=== PATIENT | male | born 1960 | race Caucasian/White ===

== ENCOUNTER 2022-07-24 15:42 | Inpatient (IN) | payer MEDICARE, OTHER ==
[~2022-07-24] VITALS: Ht 172.7 cm; Wt 112.0 kg
[2022-07-24] MEDS ORDERED: INSU100V28 SQ (16:34)
[2022-07-24] MEDS ORDERED: BISA10SU61 RC (16:34)
[2022-07-24] MEDS ORDERED: MAGN400O6 PO (16:34)
[2022-07-24] MEDS ORDERED: PANT40TA49 PO (16:34)
[2022-07-24] MEDS ORDERED: AMLO10TA59 PO (16:34)
[2022-07-24] MEDS ORDERED: FERR325T28 PO (16:34)
[2022-07-24] MEDS ORDERED: MULT-213 PO (16:34)
[2022-07-24] MEDS ORDERED: AMIN236L PO (16:34)
[2022-07-24] MEDS ORDERED: ASCO500T10 PO (16:34)
[2022-07-24] MEDS ORDERED: METO25TA6 PO (16:34)
[2022-07-24] MEDS ORDERED: LACT10SO3 PO (16:34)
[2022-07-24] MEDS ORDERED: ACET-2154 PO (16:34)
[2022-07-24] MEDS ORDERED: HYDR-3972 PO ×2 (16:34)
[2022-07-24] MEDS ORDERED: ACET-2605 PO (16:34)
[2022-07-24] MEDS ORDERED: NA P133E RC (16:34)
[2022-07-24] MEDS ORDERED: IV NORMAL SALINE 500 ML IV ONE (16:45)
[2022-07-24] MEDS ORDERED: VANCOMYCIN IV 1,000 MG in IV DEXTROSE 5% 250 ML IV ONE (16:45)
[2022-07-24] MEDS ORDERED: CEFTRIAXONE 1 G in IV DEXTROSE 5% 50 ML IV ONE (16:45)
[2022-07-24] MEDS ORDERED: CEFTRIAXONE /D5W 50ML IVPB **ER PYXIS IV ONE (16:55)
[2022-07-24] MEDS ORDERED: VANCOMYCIN IV 200 ML ONE (16:55)
[2022-07-24] MEDS ORDERED: CEFTRIAXONE 1 G VIAL ONE (16:55)
[2022-07-24 16:59] LABS: *CLARITY,URINE TURBID (CLEAR); *COLOR,URINE YELLOW (YELLOW); *KETONES,URINE NEGATIVE (NEGATIVE); LEUKOCYTE ESTERASE ,URINE 1+ (NEGATIVE); NITRITE, URINE POSITIVE (NEGATIVE); UGLUCOSE NEGATIVE (NEGATIVE)
[2022-07-24 17:02] LABS: HEMATOCRIT 28.3 % (36.7-47.1); MEAN CORPUSCULAR HEMOGLOBIN 25.4 uug (23.8-33.4); MEAN CORPUSCULAR VOLUME 81.5 fL (73.0-96.2); PLATELET COUNT (AUTO) 320 K/uL (152-348)
[2022-07-24 17:07] LABS: CREATININE 0.7 mg/dL (0.6-1.3); POTASSIUM 3.1 mmol/L (3.5-5.1)
[2022-07-24 17:14] LABS: *BLOOD, URINE TRACE (NEGATIVE)
[2022-07-24 17:15] LABS: *BILIRUBIN,URIN 1+ (NEGATIVE)
[2022-07-24 17:20] LABS: BILIRUBIN,TOTAL 0.5 mg/dL (0.2-1.0); TOTAL PROTEIN, SERUM 6.1 g/dL (6.4-8.2)
[2022-07-24 17:36] LABS: RBC,URINE 0-3 /HPF (0-3)
[2022-07-24 17:37] LABS: BACTERIA,URINE MANY /HPF (NONE SEEN); SQUAMOUS EPITHELIAL CELL,UR FEW /HPF (NONE SEEN); URINE AMORPHOUS URATE MODERATE /HPF
[2022-07-24] MEDS ORDERED: ACETAMINOPHEN 325 MG TABLET PO ONE (18:15)
[2022-07-24] MEDS ORDERED: PIPERACILLIN SODIUM/TAZOBACTAM 3.375 G in IV DEXTROSE 5% 50 ML IV ONE (18:15)
[2022-07-24] MEDS ORDERED: CLINDAMYCIN PHOSPHATE IV 600 MG in IV DEXTROSE 5% 100 ML IV ONE (18:15)
[2022-07-24] MEDS ORDERED: ALBUMIN HUMAN 25% (12.5 GM/50 ML ) BOTTLE IV ONE ×2 (18:45)
[2022-07-24] MEDS ORDERED: CALCIUM CHLORIDE 1 GM/10 ML DISP.SYRIN IVP ONE ×2 (18:45→20:05)
[2022-07-24] MEDS ORDERED: FENTANYL CITRATE 100 MCG/2 ML AMPUL IV ONE (18:45)
[2022-07-24] MEDS ORDERED: ACETAMINOPHEN 325 MG TABLET ONE (20:05)
[2022-07-24] MEDS ORDERED: FENTANYL CITRATE 100 MCG/2 ML AMPUL ONE (20:06)
[2022-07-24] MEDS ORDERED: ALBUMIN HUMAN 25% 50 ML ONE (20:06)
[2022-07-24] MEDS ORDERED: ALBUMIN HUMAN 25% 150 ML ONE (20:21)
[2022-07-24] MEDS ORDERED: PIPERACILLIN/TAZOBACTAM/D5W 50 ML IV ONE (22:09)
[2022-07-25] VITALS (39 sets, daily range): BP systolic 80–129; BP diastolic 44–87
[2022-07-25] MEDS ORDERED: ACETAMINOPHEN 650 MG SUPP.RECT RC PRN (00:30)
[2022-07-25] MEDS ORDERED: FLEET ENEMA 133 ML BOTTLE RC PRN (00:30)
[2022-07-25] MEDS ORDERED: ONDANSETRON 4 MG/2 ML VIAL IV PRN (00:30)
[2022-07-25] MEDS ORDERED: MELATONIN 3 MG TABLET PO PRN (00:30)
[2022-07-25] MEDS ORDERED: MAGNESIUM HYDROXIDE 30 ML LIQUID UDC PO PRN (00:30)
[2022-07-25] MEDS ORDERED: BISACODYL 10 MG SUPP.RECT RC PRN (00:30)
[2022-07-25] MEDS ORDERED: DIGOXIN 500 MCG/2 ML AMP IV ONE (00:45)
[2022-07-25] MEDS ORDERED: ACETAMINOPHEN 325 MG TABLET PO PRN (00:45)
[2022-07-25] MEDS ORDERED: MEGESTROL ACETATE 20 MG TABLET PO SCH (00:45)
[2022-07-25] MEDS: PROTEIN SUPPLEMENT (PROSTAT) 30 ML LIQUID PO SCH ×4 (00:45→16:56)
[2022-07-25] MEDS ORDERED: INSULIN REGULAR, HUMAN 300 UNITS/3 ML VIAL SQ PRN (00:45)
[2022-07-25] MEDS ORDERED: NOREPINEPHRINE BITARTRATE 8 MG in IV NORMAL SALINE 242 ML IV PRN ×2 (00:45→18:30)
[2022-07-25] MEDS ORDERED: DEXTROSE 50% 50 ML DISP.SYRIN IV PRN (00:45)
[2022-07-25] MEDS: METOPROLOL TARTRATE 25 MG TABLET PO SCH ×3 (00:47→20:52)
[2022-07-25] MEDS: ALBUMIN HUMAN 25% 100 ML IV SCH ×4 (01:23→03:20)
[2022-07-25] MEDS: IV NS 1000 ML 1,000 ML IV SCH ×2 (02:10→17:07)
[2022-07-25] MEDS ORDERED: ALBUMIN HUMAN 25% 50 ML ONE (02:17)
[2022-07-25] MEDS: BLOOD SUGAR DIAGNOSTIC 1 EACH STRIP VI SCH ×5 (04:09→21:07)
[2022-07-25 05:06] LABS: HEMATOCRIT 23.8 % (36.7-47.1); MEAN CORPUSCULAR VOLUME 80.5 fL (73.0-96.2); PLATELET COUNT (AUTO) 250 K/uL (152-348)
[2022-07-25 05:29] LABS: CARBON DIOXIDE 27 mmol/L (21-32); CHLORIDE 104 mmol/L (98-107); CREATININE 0.6 mg/dL (0.6-1.3); GLUCOSE 83 mg/dL (74-106); MAGNESIUM 1.6 mg/dL (1.8-2.4); UREA NITROGEN, BLOOD 11 mg/dL (7-18)
[2022-07-25 05:40] LABS: POTASSIUM 2.8 mmol/L (3.5-5.1)
[2022-07-25] MEDS ORDERED: PIPERACILLIN SODIUM/TAZOBACTAM 3.375 G in IV DEXTROSE 5% 50 ML IV ONE (06:00)
[2022-07-25] MEDS ORDERED: VANCOMYCIN 1000 MG VIAL ONE (06:10)
[2022-07-25] MEDS ORDERED: PIPERACILLIN/TAZOBACTAM/D5W 50 ML IV ONE (06:10)
[2022-07-25] MEDS: LACTULOSE 20 G/30 ML LIQUID UDC PO SCH ×3 (06:16→17:05)
[2022-07-25] MEDS ORDERED: VANCOMYCIN IV 2,000 MG in IV DEXTROSE 5% 500 ML IV ONE (06:30)
[2022-07-25] MEDS ORDERED: PANTOPRAZOLE SODIUM 40 MG TABLET.DR PO SCH (07:30)
[2022-07-25] MEDS ORDERED: POTASSIUM CHLORIDE 20 MEQ TAB.PRT.SR PO ONE (07:45)
[2022-07-25] MEDS: NOREPINEPHRINE BITARTRATE 8 MG in IV NORMAL SALINE 242 ML IV PRN ×2 (08:17→20:04)
[2022-07-25] MEDS ORDERED: AMLODIPINE 10 MG TABLET PO SCH (09:00)
[2022-07-25] MEDS ORDERED: PROTEIN SUPPLEMENT (PROSTAT) 30 ML LIQUID PO SCH (09:00)
[2022-07-25] MEDS ORDERED: VANCOMYCIN IV 1,000 MG in IV DEXTROSE 5% 250 ML IV SCH (09:00)
[2022-07-25] MEDS: FERROUS SULFATE 325 MG TABEC PO SCH (09:40)
[2022-07-25] MEDS: MULTIVITAMINS,THERAPEUTIC TABLET PO SCH (09:40)
[2022-07-25] MEDS: MAGNESIUM SULFATE/D5W 100 ML IV SCH ×2 (09:41→10:23)
[2022-07-25] MEDS: ASCORBIC ACID 500 MG TABLET PO SCH (09:42)
[2022-07-25] MEDS: VANCOMYCIN IV 1,500 MG in IV DEXTROSE 5% 500 ML IV SCH ×2 (10:25→20:51)
[2022-07-25] MEDS ORDERED: REMEDY ESSENTIAL ZINC PASTE 113 GM TOP PRN (11:15)
[2022-07-25] MEDS: PIPERACILLIN SODIUM/TAZOBACTAM 3.375 G in IV DEXTROSE 5% 50 ML IV SCH ×2 (12:59→17:04)
[2022-07-25] MEDS: SODIUM HYPOCHLORITE 0.125% (QUARTER STRENGTH) 473 ML BOTTLE TP SCH (12:59)
[2022-07-25] MEDS: INSULIN REGULAR, HUMAN 300 UNIT/3 ML VIAL SQ PRN (13:10)
[2022-07-25] MEDS ORDERED: MEGESTROL ACETATE 20 MG TABLET PO ONE (18:30)
[2022-07-25] MEDS: REMEDY ESSENTIAL ZINC PASTE 113 GM TOP SCH (20:55)
[2022-07-25] MEDS ORDERED: IV NORMAL SALINE 250 ML IV ONE (22:03)
[2022-07-25] MEDS ORDERED: SWABABLE VALVE TRANSFER SET EA MC ONE (22:03)
[2022-07-25] MEDS ORDERED: IOHEXOL 300MG/ML 100 ML INFUS..BTL ONE (22:03)
[2022-07-26] VITALS (61 sets, daily range): BP systolic 79–128; BP diastolic 45–81
[2022-07-26] MEDS ORDERED: MEROPENEM 500MG/NS 50ML PB ***ER PYXIS ONLY IV ONE (00:07)
[2022-07-26] MEDS: MEROPENEM 0.5 G in IV NORMAL SALINE 50 ML IV SCH ×2 (00:21→08:23)
[2022-07-26] MEDS: LACTULOSE 20 G/30 ML LIQUID UDC PO SCH ×5 (00:21→23:24)
[2022-07-26 05:44] LABS: HEMATOCRIT 30.1 % (36.7-47.1); MEAN CORPUSCULAR HEMOGLOBIN 25.5 uug (23.8-33.4); MEAN CORPUSCULAR VOLUME 80.8 fL (73.0-96.2); PLATELET COUNT (AUTO) 393 K/uL (152-348)
[2022-07-26 05:59] LABS: CREATININE 0.7 mg/dL (0.6-1.3); PHOSPHOROUS 3.7 mg/dL (2.5-4.9)
[2022-07-26 06:08] LABS: POTASSIUM 2.8 mmol/L (3.5-5.1)
[2022-07-26 06:09] LABS: THYROID STIMULATING HORMONE 0.515 mIU/mL (0.358-3.740)
[2022-07-26] MEDS: PANTOPRAZOLE SODIUM 40 MG TABLET.DR PO SCH (06:46)
[2022-07-26] MEDS: VANCOMYCIN IV 1,500 MG in IV DEXTROSE 5% 500 ML IV SCH (07:54)
[2022-07-26] MEDS: BLOOD SUGAR DIAGNOSTIC 1 EACH STRIP VI SCH ×4 (07:55→20:54)
[2022-07-26] MEDS: INSULIN REGULAR, HUMAN 300 UNIT/3 ML VIAL SQ PRN ×3 (07:58→16:37)
[2022-07-26] MEDS ORDERED: SILVER NITRATE APPLICATOR STICK EACH TP ONE (08:00)
[2022-07-26] MEDS ORDERED: LIDOCAINE 1%-EPI 1:100,000 20 ML VIAL IJ ONE (08:00)
[2022-07-26] MEDS: PROTEIN SUPPLEMENT (PROSTAT) 30 ML LIQUID PO SCH ×3 (08:16→16:37)
[2022-07-26] MEDS: MEGESTROL ACETATE 20 MG TABLET PO SCH (08:27)
[2022-07-26] MEDS: DIGOXIN 125 MCG TABLET PO SCH (08:32)
[2022-07-26] MEDS: FERROUS SULFATE 325 MG TABEC PO SCH (08:32)
[2022-07-26] MEDS: ASCORBIC ACID 500 MG TABLET PO SCH (08:32)
[2022-07-26] MEDS: MULTIVITAMINS,THERAPEUTIC TABLET PO SCH (08:32)
[2022-07-26] MEDS: METOPROLOL TARTRATE 25 MG TABLET PO SCH ×2 (08:33→20:15)
[2022-07-26] MEDS: AMLODIPINE 10 MG TABLET PO SCH (08:33)
[2022-07-26] MEDS: REMEDY ESSENTIAL ZINC PASTE 113 GM TOP SCH ×2 (08:34→20:17)
[2022-07-26] MEDS: SODIUM HYPOCHLORITE 0.125% (QUARTER STRENGTH) 473 ML BOTTLE TP SCH (08:34)
[2022-07-26] MEDS: IV NS 1000 ML 1,000 ML IV SCH ×2 (08:35→21:18)
[2022-07-26] MEDS: POTASSIUM CHLORIDE 50 ML IV SCH ×6 (11:20→15:59)
[2022-07-26] MEDS: NOREPINEPHRINE BITARTRATE 8 MG in IV NORMAL SALINE 242 ML IV PRN ×2 (11:49→23:15)
[2022-07-26] MEDS: MEROPENEM 1 G in IV NORMAL SALINE 100 ML IV SCH ×2 (13:46→21:31)
[2022-07-26] MEDS ORDERED: POTASSIUM CHLORIDE 20 MEQ TAB.PRT.SR PO ONE (16:00)
[2022-07-26] MEDS: MUPIROCIN 2% OINT 22 GM TUBE NS SCH (20:15)
[2022-07-27] VITALS (29 sets, daily range): BP systolic 84–130; BP diastolic 55–88
[2022-07-27] MEDS: MEROPENEM 1 G in IV NORMAL SALINE 100 ML IV SCH ×3 (05:16→21:25)
[2022-07-27] MEDS: LACTULOSE 20 G/30 ML LIQUID UDC PO SCH ×4 (05:16→23:11)
[2022-07-27 07:07] LABS: HEMATOCRIT 30.1 % (36.7-47.1); MEAN CORPUSCULAR VOLUME 82.4 fL (73.0-96.2); PLATELET COUNT (AUTO) 361 K/uL (152-348)
[2022-07-27] MEDS: PANTOPRAZOLE SODIUM 40 MG TABLET.DR PO SCH (07:24)
[2022-07-27] MEDS: NOREPINEPHRINE BITARTRATE 8 MG in IV NORMAL SALINE 242 ML IV PRN ×2 (07:25→19:00)
[2022-07-27] MEDS: BLOOD SUGAR DIAGNOSTIC 1 EACH STRIP VI SCH ×4 (07:30→21:00)
[2022-07-27 07:33] LABS: CARBON DIOXIDE 23 mmol/L (21-32); CHLORIDE 110 mmol/L (98-107); CREATININE 0.6 mg/dL (0.6-1.3); GLUCOSE 117 mg/dL (74-106); MAGNESIUM 1.8 mg/dL (1.8-2.4); POTASSIUM 2.9 mmol/L (3.5-5.1); UREA NITROGEN, BLOOD 12 mg/dL (7-18)
[2022-07-27] MEDS: PROTEIN SUPPLEMENT (PROSTAT) 30 ML LIQUID PO SCH ×3 (08:17→17:01)
[2022-07-27] MEDS: MUPIROCIN 2% OINT 22 GM TUBE NS SCH ×2 (08:17→21:24)
[2022-07-27] MEDS: MEGESTROL ACETATE 20 MG TABLET PO SCH (08:18)
[2022-07-27] MEDS: REMEDY ESSENTIAL ZINC PASTE 113 GM TOP SCH ×2 (08:20→21:25)
[2022-07-27] MEDS: FERROUS SULFATE 325 MG TABEC PO SCH (08:25)
[2022-07-27] MEDS: METOPROLOL TARTRATE 25 MG TABLET PO SCH ×2 (08:26→21:00)
[2022-07-27] MEDS: ASCORBIC ACID 500 MG TABLET PO SCH (08:26)
[2022-07-27] MEDS: MULTIVITAMINS,THERAPEUTIC TABLET PO SCH (08:26)
[2022-07-27] MEDS: DIGOXIN 125 MCG TABLET PO SCH (08:26)
[2022-07-27] MEDS: SODIUM HYPOCHLORITE 0.125% (QUARTER STRENGTH) 473 ML BOTTLE TP SCH (08:28)
[2022-07-27] MEDS: AMLODIPINE 10 MG TABLET PO SCH (09:31)
[2022-07-27] MEDS: VANCOMYCIN IV 1,500 MG in IV DEXTROSE 5% 500 ML IV SCH (10:13)
[2022-07-27] MEDS ORDERED: POTASSIUM CHLORIDE 20 MEQ TAB.PRT.SR PO ONE ×2 (11:30→15:00)
[2022-07-27] MEDS: INSULIN REGULAR, HUMAN 300 UNIT/3 ML VIAL SQ PRN (12:22)
[2022-07-27] MEDS: GLUCERNA SHAKE 237 ML CAN PO SCH ×2 (12:44→17:02)
[2022-07-27] MEDS: IV NS 1000 ML 1,000 ML IV SCH (22:00)
[2022-07-27] MEDS ORDERED: DILTIAZEM HCL 25 MG IV IV PRN (22:45)
[2022-07-28] VITALS (30 sets, daily range): BP systolic 89–126; BP diastolic 54–87
[2022-07-28] MEDS: MEROPENEM 1 G in IV NORMAL SALINE 100 ML IV SCH ×3 (05:15→21:29)
[2022-07-28] MEDS: LACTULOSE 20 G/30 ML LIQUID UDC PO SCH ×4 (05:15→23:26)
[2022-07-28 05:45] LABS: CARBON DIOXIDE 25 mmol/L (21-32); CHLORIDE 113 mmol/L (98-107); CREATININE 0.5 mg/dL (0.6-1.3); GLUCOSE 96 mg/dL (74-106); POTASSIUM 3.1 mmol/L (3.5-5.1); UREA NITROGEN, BLOOD 15 mg/dL (7-18)
[2022-07-28] MEDS: PANTOPRAZOLE SODIUM 40 MG TABLET.DR PO SCH (06:21)
[2022-07-28] MEDS: BLOOD SUGAR DIAGNOSTIC 1 EACH STRIP VI SCH ×4 (06:45→21:00)
[2022-07-28 08:42] LABS: *URINE TOTAL PROTEIN RANDOM 33.8 mg/dL (<150/24HR)
[2022-07-28] MEDS: AMLODIPINE 10 MG TABLET PO SCH (09:00)
[2022-07-28] MEDS: PROTEIN SUPPLEMENT (PROSTAT) 30 ML LIQUID PO SCH ×3 (09:12→16:57)
[2022-07-28] MEDS: GLUCERNA SHAKE 237 ML CAN PO SCH ×2 (09:12→17:31)
[2022-07-28] MEDS: MUPIROCIN 2% OINT 22 GM TUBE NS SCH ×2 (09:13→21:29)
[2022-07-28] MEDS: MEGESTROL ACETATE 20 MG TABLET PO SCH (09:14)
[2022-07-28] MEDS: FERROUS SULFATE 325 MG TABEC PO SCH (09:17)
[2022-07-28] MEDS: MULTIVITAMINS,THERAPEUTIC TABLET PO SCH (09:17)
[2022-07-28] MEDS: DIGOXIN 125 MCG TABLET PO SCH (09:18)
[2022-07-28] MEDS: METOPROLOL TARTRATE 25 MG TABLET PO SCH ×2 (09:18→21:30)
[2022-07-28] MEDS: ASCORBIC ACID 500 MG TABLET PO SCH (09:19)
[2022-07-28] MEDS: REMEDY ESSENTIAL ZINC PASTE 113 GM TOP SCH ×2 (09:20→21:29)
[2022-07-28] MEDS: SODIUM HYPOCHLORITE 0.125% (QUARTER STRENGTH) 473 ML BOTTLE TP SCH (09:20)
[2022-07-28] MEDS ORDERED: POTASSIUM CHLORIDE 20 MEQ TAB.PRT.SR PO ONE ×2 (10:00→20:30)
[2022-07-28] MEDS: VANCOMYCIN IV 1,500 MG in IV DEXTROSE 5% 500 ML IV SCH (11:05)
[2022-07-28] MEDS: IV NS 1000 ML 1,000 ML IV SCH (12:11)
[2022-07-28] MEDS ORDERED: DILTIAZEM HCL 30 MG TABLET PO SCH ×2 (20:30→22:00)
[2022-07-28] MEDS ORDERED: POTASSIUM PHOSPHATE MM 15 MMOL in IV NORMAL SALINE 250 ML IV ONE (20:30)
[2022-07-28] MEDS: POTASSIUM CHLORIDE 50 ML IV SCH ×2 (21:29→23:12)
[2022-07-29] VITALS (24 sets, daily range): BP systolic 81–120; BP diastolic 43–73
[2022-07-29] MEDS: MEROPENEM 1 G in IV NORMAL SALINE 100 ML IV SCH ×3 (05:47→22:15)
[2022-07-29] MEDS: LACTULOSE 20 G/30 ML LIQUID UDC PO SCH ×4 (05:47→18:48)
[2022-07-29] MEDS: PANTOPRAZOLE SODIUM 40 MG TABLET.DR PO SCH (06:23)
[2022-07-29] MEDS: BLOOD SUGAR DIAGNOSTIC 1 EACH STRIP VI SCH ×4 (07:05→21:00)
[2022-07-29] MEDS: IV NS 1000 ML 1,000 ML IV SCH (07:10)
[2022-07-29 07:59] LABS: HEMATOCRIT 26.9 % (36.7-47.1); MEAN CORPUSCULAR HEMOGLOBIN 26.1 uug (23.8-33.4); MEAN CORPUSCULAR VOLUME 81.7 fL (73.0-96.2); PLATELET COUNT (AUTO) 215 K/uL (152-348)
[2022-07-29] MEDS: PROTEIN SUPPLEMENT (PROSTAT) 30 ML LIQUID PO SCH ×3 (08:00→17:00)
[2022-07-29 08:20] LABS: CARBON DIOXIDE 23 mmol/L (21-32); CHLORIDE 114 mmol/L (98-107); CREATININE 0.5 mg/dL (0.6-1.3); GLUCOSE 81 mg/dL (74-106); MAGNESIUM 1.4 mg/dL (1.8-2.4); PHOSPHOROUS 2.3 mg/dL (2.5-4.9); POTASSIUM 3.3 mmol/L (3.5-5.1); UREA NITROGEN, BLOOD 10 mg/dL (7-18)
[2022-07-29] MEDS: AMLODIPINE 10 MG TABLET PO SCH (08:46)
[2022-07-29] MEDS: FERROUS SULFATE 325 MG TABEC PO SCH (09:04)
[2022-07-29] MEDS: ASCORBIC ACID 500 MG TABLET PO SCH (09:05)
[2022-07-29] MEDS: DIGOXIN 125 MCG TABLET PO SCH (09:05)
[2022-07-29] MEDS: MULTIVITAMINS,THERAPEUTIC TABLET PO SCH (09:05)
[2022-07-29] MEDS: MEGESTROL ACETATE 20 MG TABLET PO SCH (09:07)
[2022-07-29] MEDS: REMEDY ESSENTIAL ZINC PASTE 113 GM TOP SCH ×2 (09:08→21:00)
[2022-07-29] MEDS: SODIUM HYPOCHLORITE 0.125% (QUARTER STRENGTH) 473 ML BOTTLE TP SCH (09:08)
[2022-07-29] MEDS: MUPIROCIN 2% OINT 22 GM TUBE NS SCH ×2 (09:10→21:00)
[2022-07-29] MEDS: GLUCERNA SHAKE 237 ML CAN PO SCH ×2 (09:10→18:48)
[2022-07-29] MEDS: MAGNESIUM SULFATE/D5W 100 ML IV SCH ×4 (09:49→12:35)
[2022-07-29] MEDS ORDERED: POTASSIUM PHOSPHATE MM 15 MMOL in IV NORMAL SALINE 250 ML IV ONE (10:00)
[2022-07-29] MEDS: METOPROLOL TARTRATE 25 MG TABLET PO SCH ×2 (12:10→21:00)
[2022-07-29] MEDS: DILTIAZEM HCL 30 MG TABLET PO SCH ×2 (12:20→22:00)
[2022-07-29] MEDS: VANCOMYCIN IV 1,500 MG in IV DEXTROSE 5% 500 ML IV SCH (12:38)
[2022-07-29] MEDS: HYDROCODONE/APAP 5-325MG TABLET PO PRN (13:37)
[2022-07-29] MEDS ORDERED: POTASSIUM CHLORIDE 20 MEQ TAB.PRT.SR PO ONE (22:30)
[2022-07-30] VITALS (24 sets, daily range): BP systolic 86–121; BP diastolic 41–77
[2022-07-30] MEDS: LACTULOSE 20 G/30 ML LIQUID UDC PO SCH ×5 (00:35→23:42)
[2022-07-30] MEDS: IV NS 1000 ML 1,000 ML IV SCH ×2 (01:17→17:24)
[2022-07-30] MEDS: MEROPENEM 1 G in IV NORMAL SALINE 100 ML IV SCH ×3 (06:53→21:39)
[2022-07-30] MEDS: DILTIAZEM HCL 30 MG TABLET PO SCH ×3 (06:54→21:38)
[2022-07-30] MEDS: PANTOPRAZOLE SODIUM 40 MG TABLET.DR PO SCH (06:56)
[2022-07-30 07:26] LABS: CARBON DIOXIDE 20 mmol/L (21-32); CHLORIDE 112 mmol/L (98-107); CREATININE 0.4 mg/dL (0.6-1.3); GLUCOSE 80 mg/dL (74-106); MAGNESIUM 1.8 mg/dL (1.8-2.4); PHOSPHOROUS 2.8 mg/dL (2.5-4.9); POTASSIUM 3.2 mmol/L (3.5-5.1); UREA NITROGEN, BLOOD 7 mg/dL (7-18)
[2022-07-30 07:30] LABS: HEMATOCRIT 28.3 % (36.7-47.1); MEAN CORPUSCULAR HEMOGLOBIN 26.1 uug (23.8-33.4); PLATELET COUNT (AUTO) 255 K/uL (152-348)
[2022-07-30] MEDS: BLOOD SUGAR DIAGNOSTIC 1 EACH STRIP VI SCH ×4 (07:30→21:00)
[2022-07-30] MEDS: PROTEIN SUPPLEMENT (PROSTAT) 30 ML LIQUID PO SCH ×3 (08:00→17:00)
[2022-07-30] MEDS: MULTIVITAMINS,THERAPEUTIC TABLET PO SCH (08:47)
[2022-07-30] MEDS: DIGOXIN 125 MCG TABLET PO SCH (08:48)
[2022-07-30] MEDS: METOPROLOL TARTRATE 25 MG TABLET PO SCH ×2 (08:48→21:10)
[2022-07-30] MEDS: FERROUS SULFATE 325 MG TABEC PO SCH (08:48)
[2022-07-30] MEDS: ASCORBIC ACID 500 MG TABLET PO SCH (08:48)
[2022-07-30] MEDS: MEGESTROL ACETATE 20 MG TABLET PO SCH (08:49)
[2022-07-30] MEDS: SODIUM HYPOCHLORITE 0.125% (QUARTER STRENGTH) 473 ML BOTTLE TP SCH (08:49)
[2022-07-30] MEDS: GLUCERNA SHAKE 237 ML CAN PO SCH ×2 (08:50→17:21)
[2022-07-30] MEDS: MUPIROCIN 2% OINT 22 GM TUBE NS SCH ×2 (08:51→21:10)
[2022-07-30] MEDS: REMEDY ESSENTIAL ZINC PASTE 113 GM TOP SCH ×2 (08:51→21:11)
[2022-07-30 11:05] LABS: CARBON DIOXIDE 19 mmol/L (21-32); CHLORIDE 111 mmol/L (98-107); CREATININE 0.5 mg/dL (0.6-1.3); GLUCOSE 98 mg/dL (74-106); MAGNESIUM 1.9 mg/dL (1.8-2.4); POTASSIUM 3.4 mmol/L (3.5-5.1); UREA NITROGEN, BLOOD 8 mg/dL (7-18)
[2022-07-30 11:08] LABS: VANCOMYCIN,TROUGH 14.4 ug/mL (12.0-20.0)
[2022-07-30] MEDS ORDERED: POTASSIUM CHLORIDE 20 MEQ TAB.PRT.SR PO ONE (11:45)
[2022-07-30] MEDS: VANCOMYCIN IV 1,500 MG in IV DEXTROSE 5% 500 ML IV SCH (11:53)
[2022-07-30] MEDS ORDERED: POTASSIUM PHOSPHATE MM 15 MMOL in IV NORMAL SALINE 250 ML IV ONE (13:00)
[2022-07-31] VITALS (17 sets, daily range): BP systolic 93–116; BP diastolic 46–80
[2022-07-31 05:04] LABS: HEMATOCRIT 25.8 % (36.7-47.1); MEAN CORPUSCULAR HEMOGLOBIN 26.1 uug (23.8-33.4); MEAN CORPUSCULAR VOLUME 82.7 fL (73.0-96.2); PLATELET COUNT (AUTO) 251 K/uL (152-348)
[2022-07-31] MEDS: LACTULOSE 20 G/30 ML LIQUID UDC PO SCH (05:15)
[2022-07-31] MEDS: MEROPENEM 1 G in IV NORMAL SALINE 100 ML IV SCH ×3 (05:15→21:09)
[2022-07-31] MEDS: PANTOPRAZOLE SODIUM 40 MG TABLET.DR PO SCH (05:15)
[2022-07-31 05:17] LABS: CARBON DIOXIDE 25 mmol/L (21-32); CHLORIDE 112 mmol/L (98-107); CREATININE 0.4 mg/dL (0.6-1.3); GLUCOSE 81 mg/dL (74-106); MAGNESIUM 1.4 mg/dL (1.8-2.4); PHOSPHOROUS 2.7 mg/dL (2.5-4.9); UREA NITROGEN, BLOOD 6 mg/dL (7-18)
[2022-07-31] MEDS: DILTIAZEM HCL 30 MG TABLET PO SCH ×3 (05:17→22:05)
[2022-07-31 05:30] LABS: POTASSIUM 2.8 mmol/L (3.5-5.1)
[2022-07-31] MEDS: BLOOD SUGAR DIAGNOSTIC 1 EACH STRIP VI SCH ×4 (06:43→20:32)
[2022-07-31] MEDS: PROTEIN SUPPLEMENT (PROSTAT) 30 ML LIQUID PO SCH ×3 (08:00→16:43)
[2022-07-31] MEDS: GLUCERNA SHAKE 237 ML CAN PO SCH ×2 (08:54→17:21)
[2022-07-31] MEDS: MEGESTROL ACETATE 20 MG TABLET PO SCH (08:57)
[2022-07-31] MEDS: DIGOXIN 125 MCG TABLET PO SCH (08:58)
[2022-07-31] MEDS: ASCORBIC ACID 500 MG TABLET PO SCH (08:58)
[2022-07-31] MEDS: MULTIVITAMINS,THERAPEUTIC TABLET PO SCH (08:58)
[2022-07-31] MEDS: FERROUS SULFATE 325 MG TABEC PO SCH (08:58)
[2022-07-31] MEDS: METOPROLOL TARTRATE 25 MG TABLET PO SCH ×2 (09:00→20:29)
[2022-07-31] MEDS: IV NS 1000 ML 1,000 ML IV SCH (09:01)
[2022-07-31] MEDS: REMEDY ESSENTIAL ZINC PASTE 113 GM TOP SCH ×2 (09:02→20:28)
[2022-07-31] MEDS: SODIUM HYPOCHLORITE 0.125% (QUARTER STRENGTH) 473 ML BOTTLE TP SCH (09:02)
[2022-07-31] MEDS: MUPIROCIN 2% OINT 22 GM TUBE NS SCH ×2 (09:03→20:29)
[2022-07-31] MEDS ORDERED: LACTULOSE 20 G/30 ML LIQUID UDC PO PRN (10:00)
[2022-07-31] MEDS ORDERED: POTASSIUM CHLORIDE 50 ML IV SCH (10:15)
[2022-07-31] MEDS ORDERED: MAGNESIUM SULFATE/D5W 100 ML IV SCH (10:15)
[2022-07-31] MEDS ORDERED: POTASSIUM CHLORIDE 20 MEQ TAB.PRT.SR PO ONE ×3 (10:15→12:30)
[2022-07-31] MEDS: POTASSIUM PHOSPHATE MM 15 MMOL in IV NORMAL SALINE 250 ML IV SCH ×2 (10:44→16:42)
[2022-07-31] MEDS: MAGNESIUM SULFATE/D5W 100 ML IV SCH ×4 (10:49→14:38)
[2022-07-31] MEDS: VANCOMYCIN IV 1,500 MG in IV DEXTROSE 5% 500 ML IV SCH (12:23)
[2022-08-01] VITALS: BP 106/97
[2022-08-01] MEDS: IV NS 1000 ML 1,000 ML IV SCH ×2 (00:28→17:11)
[2022-08-01 04:00] VITALS: BP 140/39
[2022-08-01] MEDS: MEROPENEM 1 G in IV NORMAL SALINE 100 ML IV SCH ×3 (06:21→23:40)
[2022-08-01] MEDS: DILTIAZEM HCL 30 MG TABLET PO SCH ×3 (06:21→23:40)
[2022-08-01] MEDS: PANTOPRAZOLE SODIUM 40 MG TABLET.DR PO SCH (06:22)
[2022-08-01] MEDS: BLOOD SUGAR DIAGNOSTIC 1 EACH STRIP VI SCH ×4 (06:34→20:55)
[2022-08-01 06:51] LABS: HEMATOCRIT 24.5 % (36.7-47.1); MEAN CORPUSCULAR HEMOGLOBIN 26.3 uug (23.8-33.4); MEAN CORPUSCULAR VOLUME 83.4 fL (73.0-96.2); PLATELET COUNT (AUTO) 240 K/uL (152-348)
[2022-08-01 07:30] LABS: CARBON DIOXIDE 25 mmol/L (21-32); CHLORIDE 111 mmol/L (98-107); CREATININE 0.4 mg/dL (0.6-1.3); GLUCOSE 75 mg/dL (74-106); MAGNESIUM 1.7 mg/dL (1.8-2.4); PHOSPHOROUS 3.3 mg/dL (2.5-4.9); UREA NITROGEN, BLOOD 5 mg/dL (7-18)
[2022-08-01] MEDS: PROTEIN SUPPLEMENT (PROSTAT) 30 ML LIQUID PO SCH ×3 (08:00→17:00)
[2022-08-01] MEDS: GLUCERNA SHAKE 237 ML CAN PO SCH ×2 (08:16→17:07)
[2022-08-01] MEDS: REMEDY ESSENTIAL ZINC PASTE 113 GM TOP SCH ×2 (08:18→20:55)
[2022-08-01 08:23] LABS: POTASSIUM 2.7 mmol/L (3.5-5.1)
[2022-08-01] MEDS: METOPROLOL TARTRATE 25 MG TABLET PO SCH ×2 (09:00→20:55)
[2022-08-01] MEDS ORDERED: POTASSIUM CHLORIDE 20 MEQ TAB.PRT.SR PO ONE (09:30)
[2022-08-01] MEDS: MUPIROCIN 2% OINT 22 GM TUBE NS SCH ×2 (10:49→20:54)
[2022-08-01] MEDS: FERROUS SULFATE 325 MG TABEC PO SCH (10:50)
[2022-08-01] MEDS: MULTIVITAMINS,THERAPEUTIC TABLET PO SCH (10:52)
[2022-08-01] MEDS: MEGESTROL ACETATE 20 MG TABLET PO SCH (10:52)
[2022-08-01] MEDS: ASCORBIC ACID 500 MG TABLET PO SCH (10:53)
[2022-08-01] MEDS: SODIUM HYPOCHLORITE 0.125% (QUARTER STRENGTH) 473 ML BOTTLE TP SCH (10:54)
[2022-08-01] MEDS: POTASSIUM CHLORIDE 20 MEQ TAB.PRT.SR PO SCH ×2 (11:12→17:32)
[2022-08-01] MEDS: DIGOXIN 125 MCG TABLET PO SCH (11:30)
[2022-08-01] MEDS: MAGNESIUM SULFATE/D5W 100 ML IV SCH ×2 (11:34→11:36)
[2022-08-01 12:00] VITALS: BP 100/57
[2022-08-01] MEDS: VANCOMYCIN IV 1,500 MG in IV DEXTROSE 5% 500 ML IV SCH (13:26)
[2022-08-02] MEDS: MEROPENEM 1 G in IV NORMAL SALINE 100 ML IV SCH ×3 (05:20→21:33)
[2022-08-02] MEDS: DILTIAZEM HCL 30 MG TABLET PO SCH ×3 (06:27→21:35)
[2022-08-02] MEDS: PANTOPRAZOLE SODIUM 40 MG TABLET.DR PO SCH (06:27)
[2022-08-02] MEDS: BLOOD SUGAR DIAGNOSTIC 1 EACH STRIP VI SCH ×6 (06:27→21:32)
[2022-08-02 07:11] LABS: HEMATOCRIT 24.9 % (36.7-47.1); MEAN CORPUSCULAR HEMOGLOBIN 27.2 uug (23.8-33.4); MEAN CORPUSCULAR VOLUME 83.7 fL (73.0-96.2); PLATELET COUNT (AUTO) 273 K/uL (152-348)
[2022-08-02 07:28] LABS: CARBON DIOXIDE 27 mmol/L (21-32); CHLORIDE 111 mmol/L (98-107); CREATININE 0.4 mg/dL (0.6-1.3); GLUCOSE 75 mg/dL (74-106); MAGNESIUM 1.6 mg/dL (1.8-2.4); PHOSPHOROUS 2.6 mg/dL (2.5-4.9); POTASSIUM 2.9 mmol/L (3.5-5.1); UREA NITROGEN, BLOOD 4 mg/dL (7-18)
[2022-08-02] MEDS: GLUCERNA SHAKE 237 ML CAN PO SCH ×2 (08:58→17:45)
[2022-08-02] MEDS: PROTEIN SUPPLEMENT (PROSTAT) 30 ML LIQUID PO SCH ×4 (08:58→20:15)
[2022-08-02] MEDS ORDERED: POTASSIUM CHLORIDE 20 MEQ TAB.PRT.SR PO SCH (09:00)
[2022-08-02] MEDS: MEGESTROL ACETATE 20 MG TABLET PO SCH (09:36)
[2022-08-02] MEDS: FERROUS SULFATE 325 MG TABEC PO SCH (09:36)
[2022-08-02] MEDS: MULTIVITAMINS,THERAPEUTIC TABLET PO SCH (09:36)
[2022-08-02] MEDS: ASCORBIC ACID 500 MG TABLET PO SCH (09:36)
[2022-08-02] MEDS: METOPROLOL TARTRATE 25 MG TABLET PO SCH ×2 (09:37→20:37)
[2022-08-02] MEDS: DIGOXIN 125 MCG TABLET PO SCH (09:37)
[2022-08-02] MEDS: SODIUM HYPOCHLORITE 0.125% (QUARTER STRENGTH) 473 ML BOTTLE TP SCH (09:38)
[2022-08-02] MEDS: REMEDY ESSENTIAL ZINC PASTE 113 GM TOP SCH ×2 (09:38→21:32)
[2022-08-02] MEDS: MUPIROCIN 2% OINT 22 GM TUBE NS SCH (09:38)
[2022-08-02] MEDS: IV NS 1000 ML 1,000 ML IV SCH (09:39)
[2022-08-02] MEDS: POTASSIUM CHLORIDE 10 MEQ TAB.PRT.SR PO SCH ×2 (11:58→13:30)
[2022-08-02] MEDS: MAGNESIUM SULFATE/D5W 100 ML IV SCH ×2 (11:58→13:13)
[2022-08-02 12:00] VITALS: BP 99/43
[2022-08-02] MEDS ORDERED: POTASSIUM PHOSPHATE MM 15 MMOL in IV NORMAL SALINE 250 ML IV ONE (14:30)
[2022-08-02] MEDS: VANCOMYCIN IV 1,500 MG in IV DEXTROSE 5% 500 ML IV SCH (14:42)
[2022-08-02 14:50] VITALS: BP 114/69
[2022-08-02] MEDS ORDERED: POTASSIUM CHLORIDE 20 MEQ TAB.PRT.SR PO ONE ×4 (15:30→20:25)
[2022-08-02 16:00] VITALS: BP 129/60
[2022-08-02 18:11] LABS: CARBON DIOXIDE 28 mmol/L (21-32); CHLORIDE 108 mmol/L (98-107); CREATININE 0.5 mg/dL (0.6-1.3); GLUCOSE 92 mg/dL (74-106); POTASSIUM 3.7 mmol/L (3.5-5.1); UREA NITROGEN, BLOOD 5 mg/dL (7-18)
[2022-08-02] MEDS: HYDROCODONE/APAP 5-325MG TABLET PO PRN (19:54)
[2022-08-02 20:54] VITALS: BP 105/60
[2022-08-03] VITALS: BP 108/70
[2022-08-03] MEDS: IV NS 1000 ML 1,000 ML IV SCH ×2 (01:55→11:47)
[2022-08-03 05:00] VITALS: BP 102/54
[2022-08-03] MEDS: DILTIAZEM HCL 30 MG TABLET PO SCH ×3 (05:56→21:21)
[2022-08-03] MEDS: MEROPENEM 1 G in IV NORMAL SALINE 100 ML IV SCH ×3 (05:56→21:21)
[2022-08-03 06:30] LABS: HEMATOCRIT 25.5 % (36.7-47.1); MEAN CORPUSCULAR HEMOGLOBIN 26.4 uug (23.8-33.4); MEAN CORPUSCULAR VOLUME 83.1 fL (73.0-96.2); PLATELET COUNT (AUTO) 303 K/uL (152-348)
[2022-08-03] MEDS: PANTOPRAZOLE SODIUM 40 MG TABLET.DR PO SCH (06:55)
[2022-08-03] MEDS: BLOOD SUGAR DIAGNOSTIC 1 EACH STRIP VI SCH ×4 (06:56→20:56)
[2022-08-03 07:22] LABS: CARBON DIOXIDE 23 mmol/L (21-32); CHLORIDE 111 mmol/L (98-107); CREATININE 0.4 mg/dL (0.6-1.3); GLUCOSE 82 mg/dL (74-106); MAGNESIUM 1.5 mg/dL (1.8-2.4); PHOSPHOROUS 2.4 mg/dL (2.5-4.9); POTASSIUM 3.5 mmol/L (3.5-5.1); UREA NITROGEN, BLOOD 5 mg/dL (7-18)
[2022-08-03] MEDS: PROTEIN SUPPLEMENT (PROSTAT) 30 ML LIQUID PO SCH ×6 (08:07→17:02)
[2022-08-03] MEDS: GLUCERNA SHAKE 237 ML CAN PO SCH ×2 (08:07→17:01)
[2022-08-03] MEDS: VANCOMYCIN IV 1,500 MG in IV DEXTROSE 5% 500 ML IV SCH (08:07)
[2022-08-03] MEDS: MEGESTROL ACETATE 20 MG TABLET PO SCH (09:07)
[2022-08-03] MEDS: DIGOXIN 125 MCG TABLET PO SCH (09:08)
[2022-08-03] MEDS: MULTIVITAMINS,THERAPEUTIC TABLET PO SCH (09:08)
[2022-08-03] MEDS: FERROUS SULFATE 325 MG TABEC PO SCH (09:08)
[2022-08-03] MEDS: METOPROLOL TARTRATE 25 MG TABLET PO SCH ×2 (09:08→20:57)
[2022-08-03] MEDS: ASCORBIC ACID 500 MG TABLET PO SCH (09:08)
[2022-08-03] MEDS: SODIUM HYPOCHLORITE 0.125% (QUARTER STRENGTH) 473 ML BOTTLE TP SCH (09:10)
[2022-08-03] MEDS: REMEDY ESSENTIAL ZINC PASTE 113 GM TOP SCH ×2 (09:10→20:56)
[2022-08-03] MEDS: MAGNESIUM SULFATE/D5W 100 ML IV SCH ×2 (10:12→11:47)
[2022-08-03 11:21] VITALS: BP 104/66
[2022-08-03] MEDS ORDERED: POTASSIUM CHLORIDE 20 MEQ TAB.PRT.SR PO ONE (13:30)
[2022-08-03] MEDS ORDERED: POTASSIUM PHOSPHATE MM 15 MMOL in IV NORMAL SALINE 250 ML IV ONE (13:30)
[2022-08-03 15:19] VITALS: BP 143/74
[2022-08-04] MEDS: HYDROCODONE/APAP 5-325MG TABLET PO PRN (02:16)
[2022-08-04] MEDS: VANCOMYCIN IV 1,500 MG in IV DEXTROSE 5% 500 ML IV SCH ×2 (02:17→20:49)
[2022-08-04 04:45] VITALS: BP 99/59
[2022-08-04] MEDS: MEROPENEM 1 G in IV NORMAL SALINE 100 ML IV SCH ×3 (06:02→21:41)
[2022-08-04] MEDS: DILTIAZEM HCL 30 MG TABLET PO SCH ×3 (06:02→21:41)
[2022-08-04] MEDS: PANTOPRAZOLE SODIUM 40 MG TABLET.DR PO SCH (06:03)
[2022-08-04] MEDS: BLOOD SUGAR DIAGNOSTIC 1 EACH STRIP VI SCH ×4 (06:46→21:41)
[2022-08-04 07:01] LABS: HEMATOCRIT 24.9 % (36.7-47.1); MEAN CORPUSCULAR HEMOGLOBIN 26.7 uug (23.8-33.4); MEAN CORPUSCULAR VOLUME 83.4 fL (73.0-96.2); PLATELET COUNT (AUTO) 297 K/uL (152-348)
[2022-08-04 07:07] LABS: CARBON DIOXIDE 28 mmol/L (21-32); CHLORIDE 110 mmol/L (98-107); CREATININE 0.3 mg/dL (0.6-1.3); GLUCOSE 80 mg/dL (74-106); MAGNESIUM 1.6 mg/dL (1.8-2.4); POTASSIUM 3.1 mmol/L (3.5-5.1); UREA NITROGEN, BLOOD 4 mg/dL (7-18)
[2022-08-04] MEDS: MEGESTROL ACETATE 20 MG TABLET PO SCH (08:55)
[2022-08-04] MEDS: DIGOXIN 125 MCG TABLET PO SCH (08:56)
[2022-08-04] MEDS: MULTIVITAMINS,THERAPEUTIC TABLET PO SCH (08:56)
[2022-08-04] MEDS: PROTEIN SUPPLEMENT (PROSTAT) 30 ML LIQUID PO SCH ×6 (08:57→16:47)
[2022-08-04] MEDS: METOPROLOL TARTRATE 25 MG TABLET PO SCH ×2 (08:57→20:43)
[2022-08-04] MEDS: FERROUS SULFATE 325 MG TABEC PO SCH (08:57)
[2022-08-04] MEDS: GLUCERNA SHAKE 237 ML CAN PO SCH ×2 (08:59→16:46)
[2022-08-04] MEDS: ASCORBIC ACID 500 MG TABLET PO SCH (08:59)
[2022-08-04] MEDS: REMEDY ESSENTIAL ZINC PASTE 113 GM TOP SCH ×2 (08:59→20:51)
[2022-08-04] MEDS: SODIUM HYPOCHLORITE 0.125% (QUARTER STRENGTH) 473 ML BOTTLE TP SCH (09:00)
[2022-08-04] MEDS ORDERED: POTASSIUM CHLORIDE 20 MEQ TAB.PRT.SR PO ONE (10:00)
[2022-08-04] MEDS: IV NS 1000 ML 1,000 ML IV SCH (10:17)
[2022-08-04] MEDS: MAGNESIUM SULFATE/D5W 100 ML IV SCH ×2 (10:17→11:02)
[2022-08-04 11:19] VITALS: BP 110/50
[2022-08-04 15:20] VITALS: BP 109/72
[2022-08-04 20:53] VITALS: BP 108/36
[2022-08-04] MEDS ORDERED: POTASSIUM CHLORIDE 10 MEQ TAB.PRT.SR PO ONE (21:45)
[2022-08-05 00:58] VITALS: BP 111/55
[2022-08-05] MEDS: IV NS 1000 ML 1,000 ML IV SCH ×2 (02:03→21:02)
[2022-08-05 04:10] VITALS: BP 106/70
[2022-08-05 05:40] LABS: HEMATOCRIT 27.7 % (36.7-47.1); MEAN CORPUSCULAR HEMOGLOBIN 26.9 uug (23.8-33.4); MEAN CORPUSCULAR VOLUME 83.5 fL (73.0-96.2); PLATELET COUNT (AUTO) 352 K/uL (152-348)
[2022-08-05 05:55] LABS: CARBON DIOXIDE 27 mmol/L (21-32); CHLORIDE 109 mmol/L (98-107); CREATININE 0.4 mg/dL (0.6-1.3); GLUCOSE 87 mg/dL (74-106); MAGNESIUM 1.3 mg/dL (1.8-2.4); POTASSIUM 3.4 mmol/L (3.5-5.1); UREA NITROGEN, BLOOD 4 mg/dL (7-18)
[2022-08-05] MEDS: PANTOPRAZOLE SODIUM 40 MG TABLET.DR PO SCH (06:31)
[2022-08-05] MEDS: MEROPENEM 1 G in IV NORMAL SALINE 100 ML IV SCH ×3 (06:31→21:09)
[2022-08-05] MEDS: DILTIAZEM HCL 30 MG TABLET PO SCH ×3 (06:31→21:09)
[2022-08-05] MEDS: BLOOD SUGAR DIAGNOSTIC 1 EACH STRIP VI SCH ×4 (07:20→21:00)
[2022-08-05] MEDS: DIGOXIN 125 MCG TABLET PO SCH (08:41)
[2022-08-05] MEDS: MEGESTROL ACETATE 20 MG TABLET PO SCH (08:42)
[2022-08-05] MEDS: ASCORBIC ACID 500 MG TABLET PO SCH (08:42)
[2022-08-05] MEDS: METOPROLOL TARTRATE 25 MG TABLET PO SCH ×2 (08:42→21:00)
[2022-08-05] MEDS: FERROUS SULFATE 325 MG TABEC PO SCH (08:42)
[2022-08-05] MEDS: MULTIVITAMINS,THERAPEUTIC TABLET PO SCH (08:42)
[2022-08-05] MEDS: REMEDY ESSENTIAL ZINC PASTE 113 GM TOP SCH ×2 (08:43→21:10)
[2022-08-05] MEDS: PROTEIN SUPPLEMENT (PROSTAT) 30 ML LIQUID PO SCH ×6 (08:43→16:58)
[2022-08-05] MEDS: GLUCERNA SHAKE 237 ML CAN PO SCH ×2 (08:43→16:57)
[2022-08-05] MEDS: SODIUM HYPOCHLORITE 0.125% (QUARTER STRENGTH) 473 ML BOTTLE TP SCH (08:44)
[2022-08-05] MEDS ORDERED: POTASSIUM CHLORIDE 20 MEQ POWDER PACKET PO ONE (09:15)
[2022-08-05] MEDS: MAGNESIUM SULFATE/D5W 100 ML IV SCH ×4 (09:39→12:22)
[2022-08-05 12:00] VITALS: BP 109/68
[2022-08-05] MEDS: VANCOMYCIN IV 1,500 MG in IV DEXTROSE 5% 500 ML IV SCH (14:18)
[2022-08-05] MEDS ORDERED: MAGNESIUM SULFATE/D5W 100 ML IV SCH (14:45)
[2022-08-05] MEDS ORDERED: POTASSIUM CHLORIDE 20 MEQ TAB.PRT.SR PO ONE (15:30)
[2022-08-05 15:49] VITALS: BP 113/73
[2022-08-05 20:33] VITALS: BP 112/66
[2022-08-06 00:05] VITALS: BP 119/79
[2022-08-06 04:05] VITALS: BP 109/78
[2022-08-06 06:08] LABS: HEMATOCRIT 27.8 % (36.7-47.1); MEAN CORPUSCULAR VOLUME 84.6 fL (73.0-96.2); PLATELET COUNT (AUTO) 322 K/uL (152-348)
[2022-08-06 06:24] LABS: CARBON DIOXIDE 29 mmol/L (21-32); CHLORIDE 110 mmol/L (98-107); CREATININE 0.4 mg/dL (0.6-1.3); GLUCOSE 87 mg/dL (74-106); MAGNESIUM 1.6 mg/dL (1.8-2.4); PHOSPHOROUS 3.2 mg/dL (2.5-4.9); UREA NITROGEN, BLOOD 4 mg/dL (7-18)
[2022-08-06] MEDS: PANTOPRAZOLE SODIUM 40 MG TABLET.DR PO SCH (06:25)
[2022-08-06] MEDS: DILTIAZEM HCL 30 MG TABLET PO SCH ×3 (06:25→21:24)
[2022-08-06] MEDS: MEROPENEM 1 G in IV NORMAL SALINE 100 ML IV SCH ×3 (06:25→21:24)
[2022-08-06 06:35] LABS: POTASSIUM 2.5 mmol/L (3.5-5.1)
[2022-08-06] MEDS: BLOOD SUGAR DIAGNOSTIC 1 EACH STRIP VI SCH ×4 (07:18→21:00)
[2022-08-06] MEDS: VANCOMYCIN IV 1,500 MG in IV DEXTROSE 5% 500 ML IV SCH (08:24)
[2022-08-06] MEDS: GLUCERNA SHAKE 237 ML CAN PO SCH ×2 (08:25→17:04)
[2022-08-06] MEDS: PROTEIN SUPPLEMENT (PROSTAT) 30 ML LIQUID PO SCH ×6 (08:25→17:05)
[2022-08-06] MEDS: DIGOXIN 125 MCG TABLET PO SCH (08:41)
[2022-08-06] MEDS: METOPROLOL TARTRATE 25 MG TABLET PO SCH ×2 (08:41→21:24)
[2022-08-06] MEDS: FERROUS SULFATE 325 MG TABEC PO SCH ×2 (08:41→21:24)
[2022-08-06] MEDS: ASCORBIC ACID 500 MG TABLET PO SCH (08:42)
[2022-08-06] MEDS: POTASSIUM CHLORIDE 20 MEQ TAB.PRT.SR PO SCH (08:42)
[2022-08-06] MEDS: MEGESTROL ACETATE 20 MG TABLET PO SCH (08:43)
[2022-08-06] MEDS: MULTIVITAMINS,THERAPEUTIC TABLET PO SCH (08:43)
[2022-08-06] MEDS: SODIUM HYPOCHLORITE 0.125% (QUARTER STRENGTH) 473 ML BOTTLE TP SCH (08:43)
[2022-08-06] MEDS: REMEDY ESSENTIAL ZINC PASTE 113 GM TOP SCH ×2 (08:43→21:00)
[2022-08-06] MEDS ORDERED: POTASSIUM CHLORIDE 20 MEQ TAB.PRT.SR PO ONE ×3 (09:30→18:00)
[2022-08-06] MEDS: MAGNESIUM SULFATE/D5W 100 ML IV SCH ×4 (09:54→13:18)
[2022-08-06 11:31] VITALS: BP 121/64
[2022-08-06 15:33] VITALS: BP 112/78
[2022-08-06] MEDS: CULTURELLE CAPSULE PO SCH (16:39)
[2022-08-06] MEDS ORDERED: PROT30LI PO (17:24)
[2022-08-06] MEDS ORDERED: VANC1PIG IV (17:24)
[2022-08-06] MEDS ORDERED: SODI473S8 TP (17:24)
[2022-08-06] MEDS ORDERED: ASCO500T21 PO (17:24)
[2022-08-06] MEDS ORDERED: DEXT50DI8 IV (17:24)
[2022-08-06] MEDS ORDERED: HYDR-3972 PO (17:24)
[2022-08-06] MEDS ORDERED: POTA-194 PO (17:24)
[2022-08-06] MEDS ORDERED: LACT1CAP57 PO (17:24)
[2022-08-06] MEDS ORDERED: LACT10SO7 PO (17:24)
[2022-08-06] MEDS ORDERED: MENT113O TOP ×2 (17:24)
[2022-08-06] MEDS ORDERED: ONDA4VIA23 PO (17:24)
[2022-08-06] MEDS ORDERED: MEGE20TA4 PO (17:24)
[2022-08-06] MEDS ORDERED: INSU100V28 SQ ×2 (17:24)
[2022-08-06] MEDS ORDERED: ACET650S13 RC (17:24)
[2022-08-06] MEDS ORDERED: MERO1PIG IV (17:24)
[2022-08-06] MEDS ORDERED: DILT30TA35 PO (17:24)
[2022-08-06] MEDS ORDERED: MELA3TAB41 PO (17:24)
[2022-08-06] MEDS ORDERED: NUT.237L36 PO (17:24)
[2022-08-06] MEDS ORDERED: DIGO125T5 PO (17:24)
[2022-08-06] MEDS ORDERED: BISA10SU12 RC (17:24)
[2022-08-06] MEDS ORDERED: MAGN400O6 PO (17:24)
[2022-08-06] MEDS ORDERED: PANT40TA49 PO (17:24)
[2022-08-06] MEDS ORDERED: NA P133E RC (17:24)
[2022-08-06] MEDS ORDERED: FERR325T28 PO (17:24)
[2022-08-06] MEDS ORDERED: METO25TA6 PO (17:24)
[2022-08-06] MEDS ORDERED: Blood Sugar Diagnostic VI (17:24)
[2022-08-06] MEDS ORDERED: RXVAN XX (17:24)
[2022-08-06] MEDS ORDERED: MULT-24 PO (17:24)
[2022-08-06] MEDS ORDERED: ACET325T53 PO (17:24)
[2022-08-06] MEDS: IV NS 1000 ML 1,000 ML IV SCH (17:50)
[2022-08-06 20:00] VITALS: BP 120/54
[2022-08-06] MEDS: HYDROCODONE/APAP 5-325MG TABLET PO PRN (21:24)
[2022-08-06 22:15] VITALS: BP 120/54
[2022-08-07] VITALS: BP 116/51
[2022-08-07] MEDS: VANCOMYCIN IV 1,500 MG in IV DEXTROSE 5% 500 ML IV SCH (02:43)
[2022-08-07 04:00] VITALS: BP 100/56
[2022-08-07] MEDS: MEROPENEM 1 G in IV NORMAL SALINE 100 ML IV SCH ×2 (06:33→13:57)
[2022-08-07] MEDS: PANTOPRAZOLE SODIUM 40 MG TABLET.DR PO SCH (06:33)
[2022-08-07] MEDS: DILTIAZEM HCL 30 MG TABLET PO SCH ×2 (06:33→14:07)
[2022-08-07] MEDS: BLOOD SUGAR DIAGNOSTIC 1 EACH STRIP VI SCH ×3 (06:34→17:48)
[2022-08-07 07:03] LABS: HEMATOCRIT 27.3 % (36.7-47.1); MEAN CORPUSCULAR HEMOGLOBIN 26.9 uug (23.8-33.4); PLATELET COUNT (AUTO) 343 K/uL (152-348)
[2022-08-07 07:15] LABS: CARBON DIOXIDE 28 mmol/L (21-32); CHLORIDE 110 mmol/L (98-107); CREATININE 0.4 mg/dL (0.6-1.3); GLUCOSE 81 mg/dL (74-106); MAGNESIUM 1.6 mg/dL (1.8-2.4); PHOSPHOROUS 2.6 mg/dL (2.5-4.9); POTASSIUM 2.9 mmol/L (3.5-5.1); UREA NITROGEN, BLOOD 4 mg/dL (7-18)
[2022-08-07] MEDS: MEGESTROL ACETATE 20 MG TABLET PO SCH (09:21)
[2022-08-07] MEDS: CULTURELLE CAPSULE PO SCH ×2 (09:21→17:00)
[2022-08-07] MEDS: POTASSIUM CHLORIDE 20 MEQ TAB.PRT.SR PO SCH (09:22)
[2022-08-07] MEDS: MULTIVITAMINS,THERAPEUTIC TABLET PO SCH (09:23)
[2022-08-07] MEDS: FERROUS SULFATE 325 MG TABEC PO SCH (09:23)
[2022-08-07] MEDS: ASCORBIC ACID 500 MG TABLET PO SCH (09:23)
[2022-08-07] MEDS: PROTEIN SUPPLEMENT (PROSTAT) 30 ML LIQUID PO SCH ×6 (09:25→17:00)
[2022-08-07] MEDS: GLUCERNA SHAKE 237 ML CAN PO SCH ×2 (09:26→17:00)
[2022-08-07] MEDS: DIGOXIN 125 MCG TABLET PO SCH (09:28)
[2022-08-07] MEDS: SODIUM HYPOCHLORITE 0.125% (QUARTER STRENGTH) 473 ML BOTTLE TP SCH (09:35)
[2022-08-07] MEDS: REMEDY ESSENTIAL ZINC PASTE 113 GM TOP SCH (09:35)
[2022-08-07] MEDS ORDERED: POTASSIUM CHLORIDE 20 MEQ TAB.PRT.SR PO ONE ×3 (10:15→13:00)
[2022-08-07] MEDS: METOPROLOL TARTRATE 25 MG TABLET PO SCH (10:27)
[2022-08-07] MEDS: IV NS 1000 ML 1,000 ML IV SCH (10:27)
[2022-08-07 11:49] VITALS: BP 111/70
[2022-08-07] MEDS: MAGNESIUM SULFATE/D5W 100 ML IV SCH ×2 (13:56→15:27)
[2022-08-07 15:35] VITALS: BP 134/72
[2022-08-07 16:15] LABS: CARBON DIOXIDE 29 mmol/L (21-32); CHLORIDE 109 mmol/L (98-107); CREATININE 0.5 mg/dL (0.6-1.3); GLUCOSE 106 mg/dL (74-106); POTASSIUM 3.6 mmol/L (3.5-5.1); UREA NITROGEN, BLOOD 4 mg/dL (7-18)
[2022-08-07] MEDS ORDERED: VANCOMYCIN IV 1,500 MG in IV DEXTROSE 5% 500 ML IV SCH (18:00)
[2022-08-07] MEDS ORDERED: POTASSIUM CHLORIDE 20 MEQ TAB.PRT.SR PO SCH (21:00)
== END 2022-08-07 18:00 | DRG 853 ==
LOC: ER 15:42 → TELE-TD3 22:50 → CCUOV 23:33 → CCU 23:38 → TELE3 07-31 17:38 → MEDSURG3 08-01 10:25 → TELE3 08-02 15:27
PROVIDERS: ADMIT Internal Medicine; ATTEND Internal Medicine
PROC: 05HD33Z Insertion of Infusion Device into Right Cephalic Vein, Percutaneous Approach (ICD-10-PCS; principal; 2022-07-25)
PROC: 30233N1 Transfusion of Nonautologous Red Blood Cells into Peripheral Vein, Percutaneous Approach (ICD-10-PCS; 2022-07-25)
PROC: 0QB13ZZ Excision of Sacrum, Percutaneous Approach (ICD-10-PCS; 2022-07-26)
PROC: 0QB33ZZ Excision of Left Pelvic Bone, Percutaneous Approach (ICD-10-PCS; 2022-07-26)
PROC: 0QB23ZZ Excision of Right Pelvic Bone, Percutaneous Approach (ICD-10-PCS; 2022-07-26)
PROC: 05H433Z Insertion of Infusion Device into Left Innominate Vein, Percutaneous Approach (ICD-10-PCS; 2022-07-30)
PROC: 0QB13ZZ Excision of Sacrum, Percutaneous Approach (ICD-10-PCS; 2022-08-01)
PROC: 0QB33ZZ Excision of Left Pelvic Bone, Percutaneous Approach (ICD-10-PCS; 2022-08-01)
PROC: 0QB23ZZ Excision of Right Pelvic Bone, Percutaneous Approach (ICD-10-PCS; 2022-08-01)
PROC: 05H433Z Insertion of Infusion Device into Left Innominate Vein, Percutaneous Approach (ICD-10-PCS; 2022-08-03)
DX: A41.9 Sepsis, unspecified organism (principal); E43 Unspecified severe protein-calorie malnutrition; G93.41 Metabolic encephalopathy; L89.154 Pressure ulcer of sacral region, stage 4; L89.324 Pressure ulcer of left buttock, stage 4; L89.314 Pressure ulcer of right buttock, stage 4; R65.21 Severe sepsis with septic shock; N39.0 Urinary tract infection, site not specified; I50.32 Chronic diastolic (congestive) heart failure; M46.28 Osteomyelitis of vertebra, sacral and sacrococcygeal region; R65.20 Severe sepsis without septic shock; Z22.322 Carrier or suspected carrier of Methicillin resistant Staphylococcus aureus; I25.2 Old myocardial infarction; E66.01 Morbid (severe) obesity due to excess calories; Z68.33 Body mass index [BMI] 33.0-33.9, adult; I48.91 Unspecified atrial fibrillation; Z20.822 Contact with and (suspected) exposure to COVID-19; E11.69 Type 2 diabetes mellitus with other specified complication; Z79.4 Long term (current) use of insulin; E87.6 Hypokalemia; I11.0 Hypertensive heart disease with heart failure; D53.9 Nutritional anemia, unspecified; Z87.11 Personal history of peptic ulcer disease; Z79.899 Other long term (current) drug therapy; K21.9 Gastro-esophageal reflux disease without esophagitis; I87.8 Other specified disorders of veins; R60.0 Localized edema; R79.82 Elevated C-reactive protein (CRP); K29.70 Gastritis, unspecified, without bleeding
CPT/HCPCS: 36415; 36569; 70030-TC; 71045; 83550; 83605; 83735; 84100; 84156; 84157; 84443; 84484; 85025; 85651; 86140; 86850; 86900; 86901; 86920; 87040; 93005; A4663; A6209; A6213; G0378; J0696; J1815; J2185; J2543; J3010; J3370; J3475; J3480; J3490; J7040; J7060; P9016; P9047; Q9967